=== PATIENT | male | born 1945 | race Caucasian/White ===

== ENCOUNTER 2017-10-28 06:06 | Emergency (ER) | payer OTHER ==
[~2017-10-28] VITALS: Ht 170.2 cm; Wt 68.0 kg
[~2017-10-28 06:06] MED LIST: ASPIR 8181 MG PO; CALTRATE 600 +1 TAB PO; ECOTRIN81 MG PO; FLOVENT0.11 MG/Ac INH; GARLIC400 MG PO; GOLYTELY 40004000 ML PO; METAMUCIL3.4 GM/Do2 PO; MULTIVITAMIN1 TAB PO; PREDNISONE 20MG20 MG PO; PROMETHAZINE D473 ML PO; SPIRIVA 18 MCG18 MCG INH; TYLENOL #31 TAB PO; VITAMIN C500 M3 PO; VITAMIN D31000 I1 PO; ZITHROMAX Z-PA250 M1 PO
[2017-10-28 06:20] VITALS: BP 142/70
--- NOTE | 2017-10-28 06:43 | ED GI/GU/ABDOMINAL COMPLAINT ---
History of Present Illness General Chief Complaint: General Adult Stated Complaint: " CONSTIPATION X 2WEEKS" Source: patient, old records Exam Limitations: no limitations Vital Signs & Intake/Output Vital Signs & Intake/Output Vital Signs Date Time Temp Pulse Resp B/P B/P Pulse O2 O2 Flow FiO2 Mean Ox Delivery Rate 10/28 0620 98.0 109 18 142/70 99 Room Air Allergies Coded Allergies: No Known Allergies (10/28/17) Reconcile Medications Ascorbic Acid (Vitamin C) (Unknown Strength) TAB (Unknown Dose) PO DAILY SUPPLEMENT (Reported) Aspirin (Ecotrin) 81 MG ECT 1 TAB PO DAILY HEART/BLOOD (Reported) Calcium Carbonate/Vitamin D (Caltrate) (Unknown Strength) TAB (Unknown Dose) PO DAILY SUPPLEMENT (Reported) CHOLECALCIFEROL (VITAMIN D3) (Vitamin D3) (Unknown Strength) SGL (Unknown Dose ) PO DAILY SUPPLEMENT (Reported) Garlic (Unknown Strength) TAB (Unknown Dose) PO DAILY SUPPLEMENT (Reported) Multivitamin (Multiple Vitamins) 1 EACH TABLET 1 TAB PO DAILY SUPPLEMENT ( Reported) Psyllium (Metamucil) (Unknown Strength) PDR (Unknown Dose) PO BID GI ( Reported) Tiotropium [place] (Spiriva) 18 MCG CAP.W.DEV 1 CAP INH DAILY EMPHYSEMA ( Reported) Triage Note: TRIAGE: PATIENT TO ER FROM HOME REPORTING SEVERE CONSTIPATION, " [facility] CLOSED THIS WEEK SO HE TOLD ME TO COME IN. GAVE ME LYNSES FRIDAY BUT IT DIDN'T WORK." REPORTS LAST BM APPROX X 2 WEEKS AGO, "A COUPLE OF MINOR EXCEPTIONS." DENIES N/V. GENERALIZED ABD PAIN 12/09. Triage Nurses Notes Reviewed? yes HPI: Patient presents to emergency department with constipation. Patient states his last bowel movement was 2 weeks ago. Patient states that since then he has been occasionally having very small bowel movements. Patient tried a stool softener, a suppository, he was seen by his primary care physician and put on linzess and he tried an enema all with small amount of success. He denies any abdominal pain. There is no nausea or vomiting. No fevers or chills. Patient states that he hurt his lower back 2 weeks ago and has been taking Aleve for the pain. (José Miguel BRADLEY,Landon Shultz) Past History Travel History Traveled to [place] past 21 day No Medical History Any Pertinent Medical History? see below for history Neurological: NONE EENT: NONE Cardiovascular: NONE Respiratory: emphysema Gastrointestinal: NONE Hepatic: NONE Renal: NONE Musculoskeletal: NONE Psychiatric: NONE Endocrine: NONE Blood Disorders: NONE Cancer(s): NONE MEDICAL REVIEWER/Reproductive: NONE Tetanus Vaccine: 11/25/15 Surgical History Surgical History: non-contributory Psychosocial History What is your primary language Bulgarian Tobacco Use: Current Daily Use Daily Tobacco Use Amount/Type: => 5 Cigarettes daily ETOH Use: denies use Illicit Drug Use: denies illicit drug use Family History Hx Contributory? No (Landon Valdez MD) Review of Systems Review of Systems Constitutional: Reports: no symptoms. Respiratory: Reports: no symptoms. Cardiovascular: Reports: no symptoms. GI: Reports: see HPI, constipation. Musculoskeletal: Reports: see HPI, back pain. Neurological/Psychological: Reports: no symptoms. Immunologic/Allergic: Reports: no symptoms. (José Miguel BRADLEY,Landon Shultz) Physical Exam Physical Exam General Appearance: well developed/nourished, alert, awake, anxious, mild distress Head: atraumatic Eyes: Bilateral: PERRL, EOMI. Neck: normal inspection, supple Respiratory: normal breath sounds, chest non-tender, no respiratory distress, lungs clear Cardiovascular: regular rate/rhythm, normal peripheral pulses Gastrointestinal: normal bowel sounds, soft, non-tender, no organomegaly Rectal: fecal impaction Back: normal inspection, normal range of motion Neurologic/Psych: no motor/sensory deficits, awake, alert, oriented x 3, normal gait Core Measures ACS in differential dx? No Sepsis Present: No Sepsis Focused Exam Completed? No (Landon Valdez MD) Progress Differential Diagnosis: bowel obstruction, CONSTIPATION Plan of Care: Orders Procedure Date/time Status Enema 10/28 0642 Active Diagnostic Imaging: Viewed by Me: Radiology Read. Discussed w/RAD: Radiology Read. Initial ED EKG: none Hand-Off Endorsed To: Anurag Rosa MD Endorsed Time: 0700 Pending: other (ENEMA) (José Miguel BRADLEY,Landon Shultz) Comments: Some stool loosened with soap suds enema. (Anurag Rosa MD) Departure Departure Condition: Stable Clinical Impression Primary Impression: Constipation Referrals: Luc Gonzalez MD (PCP/Family) Departure Forms: Customer Survey General Discharge Information (Landon Valdez MD) Departure Time of Disposition: 809 Disposition: HOME OR SELF CARE Prescriptions: Current Visit Scripts Sodium,Potassium,&Mag Sulfates (Suprep Bowel Prep Kit) 0 PO SEE ADMIN CRITERIA PRN constipation #1 KIT 1 bottle diluted to 480 ml then drink 2x16 oz of water over next hour.Repeat tomorrow as needed (Shelley BRADLEY,Anurag)
--- NOTE | 2017-10-28 07:26 | RADIOLOGY REPORT ---
EXAMINATION: XR ABDOMEN WITH PA CHEST CLINICAL INDICATION: Question obstruction. Constipation. COMPARISON: Chest radiograph 08/27/2016. Abdominal radiograph 08/23/2012. TECHNIQUE: A PA view the chest was obtained. AP supine and upright images of the abdomen were obtained. FINDINGS: Lungs are well-expanded. No focal consolidative disease, pleural effusion, or pneumothorax. The cardiac silhouette and upper mediastinal contours are normal. No acute osseous finding. Chronic changes of a vertebral augmentation are noted within the midthoracic region. There is intraluminal gas and stool visualized within the colon. No abnormally dilated loops small bowel. No air-fluid levels on upright imaging. Solid organ contours are normal. Mild degenerative spondylitic changes within the mid to lower lumbar spine. There is a compression deformity of indeterminate age involving L3 vertebral body. IMPRESSION: Unremarkable bowel gas pattern. No evidence of obstruction. Lungs are well-expanded with no evidence of consolidation or effusion.
[2017-10-28] MEDS ORDERED: [UNRECOGNIZED DRUG - OTHER] PO (08:19)
== END 2017-10-28 08:35 ==
LOC: ERH 06:06
DX: K59.00 Constipation, unspecified (principal)
CPT/HCPCS: 74022